=== PATIENT | female | born 1950 | race Caucasian/White ===

== ENCOUNTER → 2018-03-04 | Outpatient (CLI) | payer MEDICARE ==
--- NOTE | 2018-03-04 17:19 | 2DMMODE ---
[place] [address] 2 D/M-MODE ECHOCARDIOGRAM Name: MACI ELIZONDO Room: [facility]#: [id number] Admission: 03/04/18 Attend Phys: Alicia Harley Discharge: Date of : 50 Date of Service: 03/04/18 1719 Report #: [id number] THIS REPORT FOR: //name// APPROVED REPORT Study performed: 03/04/2018 11:14:06 EXAM: Comprehensive 2D, Doppler, and color-flow Echocardiogram Patient Location: Out-Patient Status: routine BSA: 1.71 HR: 58 bpm BP: 115/86 mmHg Other Information Study Quality: Good Indications Murmur 2D Dimensions LVEF(%): 67.72 (>50%) IVSd: 11.37 (7-11mm) LVOT Diam: 20.69 (18-24mm) LVDd: 42.78 mm PWd: 11.13 (7-11mm) Ascending Ao: 30.18 (22-36mm) LVDs: 26.79 (25-40mm) Aortic Root: 22.83 mm Aguilera's LVEF: 67.72 % Volumes Left Atrial Volume (Systole) LA ESV Index: 11.80 mL/m2 Aortic Valve AoV Peak Jonathan.: 1.27 m/s AO Peak Gr.: 6.46 mmHg LVOT Max P.53 mmHg AO Mean Gr.: 2.90 mmHg LVOT Mean P.35 mmHg LVOT Max V: 1.06 m/s AO V2 VTI: 25.99 cm LVOT Mean V: 0.71 m/s TRI (VTI): 3.23 cm2 LVOT V1 VTI: 24.98 cm Mitral Valve E/A Ratio: 0.94 MV Decel. Time: 207.19 [place] [address] 2 D/M-MODE ECHOCARDIOGRAM Name: MACI ELIZONDO Doris Room: [facility]#: [id number] Admission: 03/04/18 Attend Phys: Alicia Harley Discharge: Date of : 50 Date of Service: 03/04/18 1719 Report #: [id number] MV E Max Jonathan.: 0.66 m/s MV PHT: 60.09 ms MVA (PHT): 3.66 cm2 TDI E/Lateral E': 8.25 E/Medial E': 8.25 Medial E' Jonathan.: 0.08 m/s Lateral E' Jonathan.: 0.08 m/s Pulmonary Valve PV Peak Jonathan.: 0.90 m/s PV Peak Gr.: 3.23 mmHg Left Ventricle The left ventricle is normal size. There is normal LV segmental wall motion. There is modest hypertrophy of the proximal interventricular septum Left ventricular systolic function is normal. The left ventricular ejection fraction is within the normal range. LVEF is 60%. Grade I - abnormal relaxation pattern. Right Ventricle The right ventricle is normal size. The right ventricular systolic function is normal. Atria The left atrium size is normal. The right atrium size is normal. Aortic Valve Mild aortic valve sclerosis. No aortic regurgitation is present. There is no aortic valvular stenosis. Mitral Valve The mitral valve is normal in structure. Mild mitral regurgitation. No evidence of mitral valve stenosis. Tricuspid Valve The tricuspid valve is normal in structure. There is no tricuspid valve regurgitation noted. Pulmonic Valve The pulmonary valve is normal in structure. There is no pulmonic valvular regurgitation. Great Vessels The aortic root is normal in size. IVC is normal in size and collapses with >50% [place] [address] 2 D/M-MODE ECHOCARDIOGRAM Name: MACI ELIZONDO Room: [facility]#: [id number] Admission: 03/04/18 Attend Phys: Alicia Harley Discharge: Date of : 50 Date of Service: 03/04/18 1719 Report #: [id number] Pericardium There is no pericardial effusion. <Conclusion> The left ventricle is normal size. There is modest hypertrophy of the proximal interventricular septum Left ventricular systolic function is normal. The left ventricular ejection fraction is within the normal range. LVEF is 60%. Grade I - abnormal relaxation pattern. The right ventricle is normal size. The left atrium size is normal. Mild aortic valve sclerosis. No aortic regurgitation is present. There is no aortic valvular stenosis. The mitral valve is normal in structure. Mild mitral regurgitation. The tricuspid valve is normal in structure. IVC is normal in size and collapses with >50% inspiration There is no pericardial effusion. There is normal LV segmental wall motion. <ELECTRONICALLY SIGNED> By: Zachary Pride MD, FACC 03/04/18 1719 18 18 Zachary Pride MD, FACC /INF
== END ==
LOC: M.CRD 10:47
DX: I08.0 Rheumatic disorders of both mitral and aortic valves (principal)